=== PATIENT | male | born 1975 | race Two or more races ===

== ENCOUNTER 2020-06-29 10:38 | Emergency (ER) | payer OTHER ==
[~2020-06-29] VITALS: Ht 175.3 cm; Wt 103.0 kg
--- NOTE | 2020-06-29 11:06 | NUR ---
42 yo m w/ c/o of lt big toe pain yest s/p coworker stepping on foot. CMS intact. Patient resting on gurney w/ call light in reach, Floyd DHILLON at bedside. SAJI
[2020-06-29] MEDS ORDERED: OXYcodone/APAP 5/325MG TABLET ONE (11:23)
[2020-06-29 11:27] VITALS: BP 132/95
--- NOTE | 2020-06-29 11:28 | NUR ---
PATIENT MEDICATED PER EMAR, PT RESTING ON GURNEY W/ CALL LIGHT IN REACH, PT TACHYCARDIC OTHER VS WDL AWAITING XR RESULTS
[2020-06-29] MEDS ORDERED: OXYcodone/APAP 5/325MG TABLET PO ONE (11:30)
--- NOTE | 2020-06-29 12:01 | NUR ---
CALL TO RAD REGARDING XR READ DELAY.
--- NOTE | 2020-06-29 12:20 | NUR ---
ALL TESTS RESULTED. PT IS UP FOR RECHECK AT THIS TIME.
--- NOTE | 2020-06-29 12:53 | NUR ---
Patient given discharge instructions and they have confirmed that they understand the instructions. Patient ambulatory with steady gait.
== END 2020-06-29 12:54 | disposition home or self-care (01) ==
LOC: ED 12:04
DX: S90.112A Contusion of left great toe without damage to nail, initial encounter (principal); G89.11 Acute pain due to trauma; M79.672 Pain in left foot; I10 Essential (primary) hypertension; J45.909 Unspecified asthma, uncomplicated; X58.XXXA Exposure to other specified factors, initial encounter; Y93.89 Activity, other specified; Y92.89 Other specified places as the place of occurrence of the external cause; Y99.0 Civilian activity done for income or pay
CPT/HCPCS: 99283